=== PATIENT | female | born 1990 | race Caucasian/White ===

== ENCOUNTER → 2020-07-29 | Outpatient (CLI) | payer SELFPAY | LOC: M LABSMTC 09:57 | PROVIDERS: ATTEND Pediatrics | DX: Z20.828 Contact with and (suspected) exposure to other viral communicable diseases (principal) ==

== ENCOUNTER → 2021-06-21 | Outpatient (REF) | payer OTHER | LOC: M LAB REF 09:55 | PROVIDERS: ATTEND Physician Assistant | DX: J00 Acute nasopharyngitis [common cold] (principal) ==

== ENCOUNTER 2021-07-11 09:28 | Day surgery (SDC) | payer OTHER ==
[~2021-07-11] VITALS: Ht 157.5 cm; Wt 86.6 kg
[~2021-07-11 09:28] MED LIST: LIDOCAINE 1% MDV 20ML VIAL SQ PRN; LR 1,000 ML IV ONE; ceFAZolin SOD 2 GM in IV 1 EA IV ONE
--- OUTSIDE RECORDS SUMMARY | 2021-07-11 09:36 | CCD | Continuity of Care Document ---
Author Author Ashley MILLER Organization Unknown Address [address] [place] [address] Phone [phone] Care Team Providers Care Aoc Airspace Control Officer Name Role Phone Solomon Yusuf MD AUTM Unavailable [facility] AUTM [phone] Problems Description No Information Available Social History Type Date Description Comments Sex Unknown ETOH Use Denies alcohol use Tobacco Use Start: Unknown The patient has never vaped Tobacco Use Start: Unknown Patient has never smoked Smoking Status Reviewed: 06/21/21 Patient has never smoked Allergies and adverse reactions Description No Known Drug Allergies Medications Description No Active Medications Immunizations Description No Information Available Vital Signs Date Vital Result Comment 06/21/2021 4:09pm BP Systolic 123 mmHg BP Diastolic 84 mmHg Heart Rate 108 /min Respiratory Rate 16 /min O2 % BldC Oximetry 99 % Body Temperature 98.3 F Weight 185.00 lb Height 62 inches 5'2" BMI (Body Mass Index) 33.8 kg/m2 Pain Level 7 Results Description No Information Available Procedures Date Code Description Status 06/21/2021 65027 Office/Outpatient New Low [facility] 30 -44 Minutes Completed Medical Devices Description No Information Available Encounters Type Date Location Provider Dx Diagnosis Office Visit 06/21/2021 12:15p Main Office DONALD Keller J00 Acute nasopharyngitis [common cold] Z20.828 Contact w and exposure to ot h viral communicable diseases Assessments Date Code Description Provider 06/21/2021 J00 Acute nasopharyngitis [common co ld] DONALD Keller 06/21/2021 Z20.828 Contact with and (bhatt spected) exposure to other viral communicable diseases DONALD Keller Plan of Treatment No Information Available Functional Status Description No Information Available Mental Status Description No Information Available Referrals Refer to Reason for Referral Status Appt Date [facility] [address] [address]
--- OUTSIDE RECORDS SUMMARY | 2021-07-11 09:36 | CCD | Continuity of Care Document ---
Author Author Ashley MILLER Organization Unknown Address [address] [place] [address] Phone [phone] Care Team Providers Care Photographers' Model Name Role Phone Solomon Yusuf MD AUTM Unavailable [facility] AUTM [phone] Problems Description No Information Available Social [...] Available Procedures Date Code Description Status 06/21/2021 88850 Office/Outpatient New Low [facility] 30 -44 Minutes Completed Medical Devices [...] to Reason for Referral Status Appt Date [facility] [address] [address]
--- OUTSIDE RECORDS SUMMARY | 2021-07-11 09:36 | CCD | Continuity of Care Document ---
Author Author Ashley MILLER Organization Unknown Address [address] [place] [address] Phone [phone] Care Team Providers Care Food Safety Auditor Name Role Phone Solomon Yusuf MD AUTM Unavailable [facility] AUTM [phone] Problems Description No Information Available Social [...] Index) 33.8 kg/m2 Pain Level 7 Results Test Acquired Date Facility Test Result H/L Range Note Group A Stretp Culture 06/21/[address] [address] [phone] Group A Strep Culture FULL REPORT IN L <SEE NOTE> Nor mal 1 1 FULL REPORT IN LAB NOTES (eC W and [facility]). NEGATIVE FOR STREP PYOGENES (GROUP A) Procedures Date Code Description Status 06/21/2021 43962 Office/Outpatient New Low [facility] 30 -44 Minutes Completed Medical Devices Description [...] to Reason for Referral Status Appt Date [facility] [address] [address]
--- OUTSIDE RECORDS SUMMARY | 2021-07-11 09:36 | CCD | Continuity of Care Document ---
Author Author Ashley RICH DPM Organization Unknown Address [address] [place] [address], [facility] [address] [place] [address] Phone [phone] Care Team Providers Care Court Magistrate Name Role Phone Lindsay [facility] AUTM Unavailable Problems Active Problems Provider Date Swelling of first metatarsal joint of hallux of right foot Salvador Rich DPM Onset: 06/18/2021 Swelling of first metatarsal joint of hallux of left foot An yasemin Rich DPM Onset: 06/18/2021 Tailor's bunion Pablito Rich DPM Onset: 06/18/2021 Tailor's bunion Pablito Rich DPM Onset: 06/18/2021 Social History Type Date Description Comments Sex Unknown ETOH Use Denies alcohol use Tobacco Use Start: Unknown End: Unknown Patient is a former smoker smoked for 4 yers 2-3 cigs daily quit 2019 Allergies and adverse reactions Description No Known Drug Allergies Medications Description No Active Medications Immunizations Description No Information Available Vital Signs Date Vital Result Comment 06/18/2021 9:06am Height 62 inches 5'2" Weight 185.00 lb BP Systolic 138 mmHg BP Diastolic 84 mmHg Heart Rate 80 /min BMI (Body Mass Index) 33.8 kg/m2 Results Description No Information Available Procedures Date Code Description Status 06/18/2021 21148 Office/Outpatient New Low [facility] 30 -44 Minutes Completed 06/18/2021 58928 X-Ray Foot Complete Completed 06/18/2021 38332 X-Ray Foot Complete Completed Medical Devices Description No Information Available Encounters Type Date Location Provider Dx Diagnosis Office Visit 06/18/2021 9:15a [place] [facility] Pablito Rich DPM M21.611 Bunion of right foot M21.612 Bunion of left foot M21.621 Bunionette of right foot M21.622 Bunionette of left foot Assessments Date Code Description Provider 06/18/2021 M21.611 Bunion of right foot Pablito bee, DPM 06/18/2021 M21.612 Bunion of left foot Pablito mathur, DPM 06/18/2021 M21.621 Bunionette of right foot Pablito Rich, LUCIANO 06/18/2021 M21.622 Bunionette of left foot Pablito Rich DPM Plan of Treatment No Information Available Functional Status Description No Information Available Mental Status Description No Information Available Referrals Refer to Dr Reason for Referral Status Appt Date Pablito Rich DPM RT FOOT PAIN RT FOOT GROWTH Created [address] [address] [phone]
--- OUTSIDE RECORDS SUMMARY | 2021-07-11 09:36 | CCD | Continuity of Care Document ---
Author Author Ashley MILLER Organization Unknown Address [address] [place] [address] Phone [phone] Care Team Providers Care Warp Dresser Name Role Phone Solomon Yusuf MD AUTM Unavailable [facility] AUTM Problems Description No Information Available Social History [...] Available Procedures Date Code Description Status 06/21/2021 28915 Office/Outpatient New Low [facility] 30 -44 Minutes Completed Medical Devices [...] to Reason for Referral Status Appt Date [facility] [address] [address]
--- OUTSIDE RECORDS SUMMARY | 2021-07-11 09:36 | CCD ---
Author Author [facility] Organization [facility] Address Unknown Phone Unavailable Care Team Providers Care Agronomy Teacher Name Role Phone Elidia RICH DPM Unavailable Unavailable Elidia RICH DPM Unavailable Unavailable Elidia RICH DPM Unavailable Unavailable Elidia RICH DPM Unavailable Unavailable Elidia RICH DPM Unavailable Unavailable Elidia RICH DPM Unavailable Unavailable Elidia RICH DPM Unavailable Unavailable Elidia RICH DPM Unavailable Unavailable Elidia RICH DPM Unavailable Unavailable Elidia RICH DPM Unavailable Unavailable Elidia RICH DPM Unavailable Unavailable Elidia RICH DPM Unavailable Unavailable Elidia RICH DPM Unavailable Unavailable Elidia RICH DPM Unavailable Unavailable Elidia RICH DPM Unavailable Unavailable Elidia RICH DPM Unavailable Unavailable Elidia RICH DPM Unavailable Unavailable Elidia RICH DPM Unavailable Unavailable Elidia RICH DPM Unavailable Unavailable Elidia RICH DPM Unavailable Unavailable Elidia RICH DPM Unavailable Unavailable Elidia RICH DPM Unavailable Unavailable Elidia RICH DPM Unavailable Unavailable Elidia RICH DPM Unavailable Unavailable Elidia RICH DPM Unavailable Unavailable Elidia RICH DPM Unavailable Unavailable Elidia RICH DPM Unavailable Unavailable Elidia RICH DPM Unavailable Unavailable Elidia RICH DPM Unavailable Unavailable Elidia RICH DPM Unavailable Unavailable MAJAK, R ZAHRA DPM Unavailable Unavailable MAJAK, R ZAHRA DPM Unavailable Unavailable MAJAK, R ZAHRA DPM Unavailable Unavailable RING, K LURDES PA Unavailable Unavailable RING, K LURDES PA Unavailable Unavailable RING, K LURDES PA Unavailable Unavailable RING, K LURDES PA Unavailable Unavailable RING, K LURDES PA Unavailable Unavailable RING, K LURDES PA Unavailable Unavailable RING, K LURDES PA Unavailable Unavailable RING, K LURDES PA Unavailable Unavailable RING, K LURDES PA Unavailable Unavailable RING, K LURDES PA Unavailable Unavailable RING, K LURDES PA Unavailable Unavailable RING, K LURDES PA Unavailable Unavailable RING, K LURDES PA Unavailable Unavailable RING, K LURDES PA Unavailable Unavailable RING, K LURDES PA Unavailable Unavailable RING, K LURDES PA Unavailable Unavailable RING, K LURDES PA Unavailable Unavailable RING, K LURDES PA Unavailable Unavailable RING, K LURDES PA Unavailable Unavailable RING, K LURDES PA Unavailable Unavailable RING, K LURDES PA Unavailable Unavailable RING, K LURDES PA Unavailable Unavailable RING, K LURDES PA Unavailable Unavailable Re-disclosure Warning The records that you are about to access may contain information from federally-assisted alcohol or drug abuse programs. If such information is present, then the following federally mandated warning applies: This information has been disclosed to you from records protected by federal confidentiality rules (42 CFR part 2). The federal rules prohibit you from making any further disclosure of this information unless further disclosure is expressly permitted by the written consent of the person to whom it pertains or as otherwise permitted by 42 CFR part 2. A general authorization for the release of medical or other information is NOT sufficient for this purpose. The Federal rules restrict any use of the information to criminally investigate or prosecute any alcohol or drug abuse patient.The records that you are about to access may contain highly sensitive health information, the redisclosure of which is protected by Article 27-F of the [place] State Public Health law. If you continue you may have access to information: Regarding HIV / AIDS; Provided by facilities licensed or operated by the [facility] Office of Mental Health; or Provided by the [facility] Office for People With Developmental Disabilities. If such information is present, then the following [facility] mandated warning applies: This information has been disclosed to you from confidential records which are protected by state law. State law prohibits you from making any further disclosure of this information without the specific written consent of the person to whom it pertains, or as otherwise permitted by law. Any unauthorized further disclosure in violation of state law may result in a fine or halfway sentence or both. A general authorization for the release of medical or other information is NOT sufficient authorization for further disc losure. Encounters Encounter Providers Location Date Indications Data Source(s ) Outpatient Attender: LURDES [facility] 06/21/2021 11:15:00 AM EST [facility] ([facility], [facility]) Outpatient Attender: ZAHRA RICH [facility] Office 06/04 08:15:00 AM EST [facility] ([facility] Medications No Information Insurance Providers Payer name Policy type / Coverage type Policy ID Covered green party ID Covered green party's relationship to hayward Policy [place] Plan Information [facility] [id number] DO NOT USE [id number] FA2 [id number] SELF PAY ONLY [id number] [facility] [id number] FA2 [id number] Problems, Conditions, and Diagnoses Code Display Name Description Problem Type Effective Dates Data Source(s) M21.622 Tailor's bunion Tailor's bunion Problem 06/18/2021 12:0 0:00 AM EST [facility] ([facility] M21.621 Tailor's bunion Tailor's bunion Problem 06/18/2021 12:0 0:00 AM EST [facility] ([facility] M21.612 Swelling of first metatarsal joint of arenas llux of left foot Swelling of first metatarsal joint of hallux of left foot Problem 06/18/20 12:00:00 AM EST [facility] ([facility] M21.611 Swelling of first metatarsal joint of arenas llux of right foot Swelling of first metatarsal joint of hallux of right foot Problem 021 12:00:00 AM EST [facility] ([facility] Surgeries/Procedures Procedure Description Date Indications Data Source(s) OFFICE OUTPATIENT NEW 30 MINUTES 06/21/2021 12:00:00 A M EST [facility] ([facility]) RADEX FOOT COMPLETE MINIMUM 3 VIEWS 06/18/2021 12:00:0 0 AM EST [facility] ([facility] RADEX FOOT COMPLETE MINIMUM 3 VIEWS 06/18/2021 12:00:0 0 AM EST [facility] ([facility] OFFICE OUTPATIENT NEW 30 MINUTES 06/18/2021 12:00:00 A M EST [facility] ([facility] Results ID Date Data Source [id number] 07/06/2021 08:36:00 AM EST [facility] Name Value Range Interpretation Code Description Data Maggy rce(s) Supporting Document(s) SARS coronavirus 2 RNA Not Detected [facility] This lab was ordered by [facility] and reported by [facility]. ID Date Data Source [id number] 06/21/2021 04:45:00 PM EST [facility] ([facility]) Name Value Range Interpretation Code Description Data Maggy rce(s) Supporting Document(s) Group A Strep Culture Laboratory test result [facility] ([facility]) FULL REPORT IN LAB NOTES ([facility] and [facility] ). NEGATIVE FOR STREP PYOGENES (GROUP A) ID Date Data Source [id number] 06/21/2021 12:00:00 AM EST [facility] Name Value Range Interpretation Code Description Data Maggy rce(s) Supporting Document(s) SARS-CoV2 Rapid Antigen Negative [facility] This lab was ordered by [facility] and reported by [facility]. ID Date Data Source [id number] 07/29/2020 12:00:00 AM EST [facility] Name Value Range Interpretation Code Description Data Maggy rce(s) Supporting Document(s) SARS-CoV-2 (COVID-19) RNA [Presence] in Respiratory specimen by PATRICE with probe detection [facility] This lab was ordered by [facility] and reported by [facility]. Procedure Social History Code Duration Value Status Description Data Source(s ) Smoking 06/21/2021 12:00:00 AM EST Patient has never smoked co mpleted Patient has never smoked [facility] ([facility]) Vital Signs ID Date Data Source UNK Name Value Range Interpretation Code Description Data Source(s) Systolic blood pressure 123 mm[Hg] 123 mm[Hg] [facility] ([facility]) Diastolic blood pressure 84 mm[Hg] 84 mm[Hg] [facility] ([facility]) Heart rate 108 /min 108 /min [facility] ([facility]) Respiratory rate 16 /min 16 /min [facility] ( [facility]) Oxygen saturation in Arterial blood by Pulse oximetry 99 % 99 % [facility] ([facility]) Body temperature 98.3 [degF] 98.3 [degF] [facility] ([facility]) Body weight 185.00 [lb_av] 185.00 [lb_av] [facility] T ([facility]) Body height 62 [in_i] 62 [in_i] [facility] ([facility]) 5'2" Body mass index (BMI) [Ratio] 33.8 kg/m2 33.8 k g/m2 [facility] ([facility]) Body height 62 [in_i] 62 [in_i] [facility] ([facility] 5'2" Body weight 185.00 [lb_av] 185.00 [lb_av] [facility] T ([facility] Systolic blood pressure 138 mm[Hg] 138 mm[Hg] M [facility] ([facility] Diastolic blood pressure 84 mm[Hg] 84 mm[Hg] [facility] ([facility] Heart rate 80 /min 80 /min [facility] ([facility] Body mass index (BMI) [Ratio] 33.8 kg/m2 33.8 k g/m2 [facility] ([facility]
--- OUTSIDE RECORDS SUMMARY | 2021-07-11 09:36 | CCD | Continuity of Care Document ---
Author Author [facility] Organization Unknown Address [address] [place] [address] [place] [address] Phone [phone] Care Team Providers Care Asbestos Abatement Technician Name Role Phone Solomon Yusuf MD AUTM Unavailable [facility] AUTM [phone] Problems Description No Information Available Social [...] Available Procedures Date Code Description Status 06/21/2021 07270 Office/Outpatient New Low [facility] 30 -44 Minutes Completed Medical Devices [...] to Reason for Referral Status Appt Date [facility] [address] [address]
--- OUTSIDE RECORDS SUMMARY | 2021-07-11 09:36 | CCD | Continuity of Care Document ---
Author Author Ashley MILLER Organization Unknown Address [address] [place] [address] Phone [phone] Care Team Providers Care Customer Success Manager Name Role Phone Solomon Yusuf MD AUTM Unavailable [facility] AUTM Problems Description No Information Available Social [...] Available Procedures Date Code Description Status 06/21/2021 39865 Office/Outpatient New Low [facility] 30 -44 Minutes Completed Medical Devices [...] to Reason for Referral Status Appt Date [facility] [place] [address]
[2021-07-11] MEDS ORDERED: fentaNYL 100 MCG/2 ML INJECTION (J3010) As Ordered ONE (09:52)
[2021-07-11] MEDS ORDERED: MIDAZOLAM INJ 2MG/2ML VIAL (J2250 PER 1MG) As Ordered ONE (09:52)
[2021-07-11] MEDS ORDERED: propofoL 200 MG/20 ML VIAL As Ordered ONE ×3 (09:52→12:03)
[2021-07-11] MEDS ORDERED: LIDOCAINE 2% 100MG/5ML SDV (FOR ANES.) As Ordered ONE (09:52)
[2021-07-11] MEDS ORDERED: dexameTHASONE 4 MG/ML 1ML VIAL (J1100 PER 1MG) As Ordered ONE (11:15)
[2021-07-11] MEDS ORDERED: ACETAMINOPHEN 1000MG 100ML IV BTL (OFIRMEV) (J0131 PER 10MG) As Ordered ONE (11:15)
[2021-07-11] MEDS ORDERED: LIDOCAINE 1% MDV 20ML VIAL As Ordered ONE (11:15)
[2021-07-11] MEDS ORDERED: BUPIVACAINE HCL 0.5% 10ML VIAL As Ordered ONE (11:15)
[2021-07-11] MEDS ORDERED: ONDANSETRON 4MG/2ML VIAL As Ordered ONE (11:48)
[2021-07-11] MEDS ORDERED: KETOROLAC 60MG 2ML VIAL As Ordered ONE (11:48)
[2021-07-11] MEDS ORDERED: HYDR-3713 PO (12:46)
--- NOTE | 2021-07-11 15:31 | RO ---
OPERATIVE NOTE DATE OF OPERATION: 07/11/2021 PREOPERATIVE DIAGNOSIS: Right foot bunion and tailor's bunion. POSTOPERATIVE DIAGNOSIS: Right foot bunion and tailor's bunion. PROCEDURE: Right foot bunionectomy and 1st metatarsal osteotomy and tailor's bunionectomy with 5th metatarsal osteotomy. SURGEON: Dr. Pablito Rojas VOUCHER EXAMINER: None. ANESTHESIA: Monitored anesthesia care. Preoperative injection of 20 mL of a 1:1 mixture of 1% lidocaine plain, 0.5% Marcaine plane. ESTIMATED BLOOD LOSS: Minimal. MATERIALS: Arthrex 2.5 and 3.5 headless compression screws, 3-0 and 4-0 Vicryl, 4-0 nylon. INJECTABLES: Decadron 1 mL, 4 mg/mL COMPLICATIONS: None. CONDITION: Stable. Ashley Tinoco is a 30-year-old female who presented to [facility] with painful bunion to her right foot. She presents today for a surgical correction. The patient's side and site were identified and marked in the preoperative area. Consent was reviewed and obtained. All risks, complications, and alternatives to the procedure were explained to the patient in detail, and her questions were answered. DESCRIPTION OF PROCEDURE: Patient was brought to the operating room and placed on the operating table in the supine position. Monitored anesthesia care was delivered by the anesthesia team. A preoperative injection of 20 mL of a 1:1 mixture of 1% lidocaine plain, 0.5% Marcaine plain were injected in the right foot. The right foot was prepped and draped in the normal sterile fashion. A tourniquet was applied to her ankle and inflated to 250 mmHg. A dorsal incision was first made at the 1st metatarsal and carried through with a #15 blade. Dissection was carried to the first metatarsophalangeal joint capsule. T capsulotomy was performed, exposing the metatarsal head. Following this, a lateral release was performed, releasing the adductor tendon, lateral capsule, and sesamoidal ligament. McGlamry elevator was used to release the plantar structures. The medial eminence of the metatarsal head was resected with a sagittal saw, and an osteotomy was performed in the metatarsal head, transposing it laterally. This was fixated with an Arthex 3.5 headless compression screw. Remaining bone ledge was resected with a sagittal saw and smoothed with a rasp. Capsular repair was performed with 3-0 Vicryl, subcutaneous closed with 4-0 Vicryl, and skin closed with 4-0 nylon. Attention was then paid to the 5th metatarsal. A dorsal incision was drawn and carried through with a #15 blade. A linear capsulotomy was made over the 5th metatarsal head. McGlamry elevator was used to release the plantar structures. The lateral eminence of the 5th metatarsal head was resected with the sagittal saw. An osteotomy was performed, transposing the head of the metatarsal medially. This was fixated with a 2.5 headless compression screw. Remaining bone ledge was resected with the sagittal saw and smoothed with a rasp. Site was irrigated with normal saline. Capsular repair was performed with 3-0 Vicryl, subcutaneous closure with 4-0 Vicryl, skin closure of 4-0 nylon. Decadron 1 mL was injected. Sterile dressing was applied. Tourniquet was desufflated. Patient was brought to postanesthesia care unit (PACU) with vital signs stable, neurovascular status intact. She will be partial weightbearing and followup in our office in 2 days.
== END 2021-07-11 13:47 | disposition home or self-care (01) ==
LOC: M SDC 09:28
PROVIDERS: ATTEND Podiatrist Foot & Ankle Surgery
DX: M21.611 Bunion of right foot (principal); I10 Essential (primary) hypertension; G43.909 Migraine, unspecified, not intractable, without status migrainosus; Z87.891 Personal history of nicotine dependence
CPT/HCPCS: 28110; 28296; 81025; 88300; 97116; 97530; C1713; J0131; J0690; J1100; J1885; J2250; J2405; J3010

== ENCOUNTER → 2022-03-04 | Outpatient (CLI) | payer OTHER ==
[~2022-03-04] MED LIST changes: +HYDR-3713 PO; -LIDOCAINE 1% MDV 20ML VIAL SQ PRN; -LR 1,000 ML IV ONE; -ceFAZolin SOD 2 GM in IV 1 EA IV ONE
== END ==
LOC: M RAD 14:30
DX: M54.9 Dorsalgia, unspecified (principal); M53.85 Other specified dorsopathies, thoracolumbar region

== ENCOUNTER → 2022-04-04 | Outpatient (CLI) | payer OTHER | LOC: M RAD 09:51 | PROVIDERS: ATTEND Nurse Practitioner Family | DX: G56.02 Carpal tunnel syndrome, left upper limb (principal) ==

== ENCOUNTER → 2022-04-24 | Outpatient (CLI) | payer OTHER | LOC: M RAD 14:33 | PROVIDERS: ATTEND Nurse Practitioner Family | DX: G56.01 Carpal tunnel syndrome, right upper limb (principal) ==

== ENCOUNTER → 2022-08-16 | Outpatient (REF) | payer OTHER ==
[~2022-08-16] MED LIST changes: +ACET-683 PO; +IBUP-1022 PO; +NITR100C2
[2022-08-16 14:47] LABS: APPEARANCE, URINE MANUAL CLEAR (CLEAR); COLOR, URINE MANUAL YELLOW (YELLOW); SPECIFIC GRAVITY,URINE MANUAL 1.005 (1.002-1.035)
[2022-08-16 14:48] LABS: BILIRUBIN, URINE MANUAL NEGATIVE (NEGATIVE); GLUCOSE, URINE (UA) MANUAL NEGATIVE (NEGATIVE); KETONE, URINE MANUAL NEGATIVE (NEGATIVE); PROTEIN, URINE MANUAL NEGATIVE (NEGATIVE); UROBILINOGEN, URINE MANUAL NORMAL (NORMAL)
[2022-08-16 14:49] LABS: BLOOD URINE MANUAL NEGATIVE (NEGATIVE); LEUKOCYTE ESTERASE, URINE MAN NEGATIVE (NEGATIVE); NITRITE, URINE MANUAL POSITIVE (NEGATIVE)
[2022-08-16 15:13] LABS: RBC, URINE 0-1 /hpf (0-3); SQUAMOUS EPITHELIAL CELL URINE SMALL AMOUNT /hpf (SMALL AMT); WBC, URINE 0-1 /hpf (0-3)
[2022-08-16 15:14] LABS: BACTERIA, URINE SMALL AMOUNT; HYALINE CAST, URINE NONE SEEN /lpf (0-1)
== END ==
LOC: M LAB REF 13:14
PROVIDERS: ATTEND Physician Assistant Medical
DX: N39.0 Urinary tract infection, site not specified (principal)

== ENCOUNTER → 2022-08-18 | Outpatient (CLI) | payer OTHER ==
[~2022-08-18] MED LIST changes: -NITR100C2
== END ==
LOC: M LABSMTC 10:35
PROVIDERS: ATTEND Anesthesiology
DX: Z01.812 Encounter for preprocedural laboratory examination (principal); Z11.52 Encounter for screening for COVID-19

== ENCOUNTER 2022-08-21 07:01 | Day surgery (SDC) | payer OTHER ==
[~2022-08-21] VITALS: Ht 154.9 cm; Wt 89.4 kg
[~2022-08-21 07:01] MED LIST changes: +ceFAZolin SOD 2 GM in IV 1 EA IV ONE
[2022-08-21] MEDS ORDERED: LR 1,000 ML IV SCH (07:10)
[2022-08-21] MEDS ORDERED: NITR100C2 (07:23)
[2022-08-21] MEDS ORDERED: MIDAZOLAM INJ 2MG/2ML VIAL As Ordered ONE (07:50)
[2022-08-21] MEDS ORDERED: propofoL 200 MG/20 ML VIAL As Ordered ONE (07:50)
[2022-08-21] MEDS ORDERED: fentaNYL 100 MCG/2 ML INJECTION As Ordered ONE (07:50)
[2022-08-21] MEDS ORDERED: KETOROLAC 60MG 2ML VIAL As Ordered ONE (07:50)
[2022-08-21] MEDS ORDERED: LIDOCAINE 2% 100MG/5ML SDV (FOR ANES.) As Ordered ONE (07:50)
[2022-08-21] MEDS ORDERED: LIDOCAINE 1% MDV 20ML VIAL As Ordered ONE (08:24)
[2022-08-21] MEDS ORDERED: BUPIVACAINE HCL 0.25% 10ML VIAL As Ordered ONE (08:24)
[2022-08-21 09:44] VITALS: BP 131/92
== END 2022-08-21 09:54 | disposition home or self-care (01) ==
LOC: M SDC 07:01
PROVIDERS: ATTEND Podiatrist Foot & Ankle Surgery
DX: T85.848A Pain due to other internal prosthetic devices, implants and grafts, initial encounter (principal); M25.571 Pain in right ankle and joints of right foot; Z87.891 Personal history of nicotine dependence; I10 Essential (primary) hypertension; G43.909 Migraine, unspecified, not intractable, without status migrainosus; F41.9 Anxiety disorder, unspecified; F32.A Depression, unspecified; Z79.899 Other long term (current) drug therapy
CPT/HCPCS: 20680; 28122; 81025; J1100

== ENCOUNTER → 2022-09-04 | Outpatient (CLI) | payer OTHER ==
[~2022-09-04] MED LIST changes: +NITR100C2; -ceFAZolin SOD 2 GM in IV 1 EA IV ONE
== END ==
LOC: M LABSMTC 11:06
PROVIDERS: ATTEND Anesthesiology
DX: Z01.818 Encounter for other preprocedural examination (principal)

== ENCOUNTER 2022-09-09 06:09 | Day surgery (SDC) | payer OTHER ==
[~2022-09-09] VITALS: Ht 154.9 cm; Wt 89.3 kg
[~2022-09-09 06:09] MED LIST changes: +ceFAZolin SOD 2 GM in IV 1 EA IV ONE; +oxyCODONE 5MG TAB PO ONE
[2022-09-09] MEDS ORDERED: BUPIVACAINE/EPIN 0.5% 30ML VIAL As Ordered ONE (07:10)
[2022-09-09] MEDS ORDERED: ONDANSETRON 4MG 2ML VIAL As Ordered ONE (07:20)
[2022-09-09] MEDS ORDERED: propofoL 200 MG/20 ML VIAL As Ordered ONE (07:20)
[2022-09-09] MEDS ORDERED: LIDOCAINE 2% 100MG/5ML SDV (FOR ANES.) As Ordered ONE (07:20)
[2022-09-09] MEDS ORDERED: MIDAZOLAM INJ 2MG/2ML VIAL As Ordered ONE (07:20)
[2022-09-09] MEDS ORDERED: fentaNYL 100 MCG/2 ML INJECTION As Ordered ONE (07:20)
[2022-09-09] MEDS ORDERED: KETOROLAC 60MG 2ML VIAL As Ordered ONE (07:20)
[2022-09-09] MEDS ORDERED: LR 1,000 ML IV SCH (08:10)
[2022-09-09] MEDS ORDERED: HYDROMORPHONE HCL 0.5 MG/ 0.5 ML SYRINGE IV PRN (08:10)
[2022-09-09] MEDS ORDERED: ONDANSETRON 4MG 2ML VIAL IV PRN (08:10)
[2022-09-09] MEDS ORDERED: fentaNYL 100 MCG/2 ML INJECTION IV PRN (08:10)
[2022-09-09] MEDS ORDERED: OXYC1TAB23 PO (08:21)
[2022-09-09 09:30] VITALS: BP 136/70
== END 2022-09-09 09:35 | disposition home or self-care (01) ==
LOC: M SDC 06:09
PROVIDERS: ATTEND Orthopaedic Surgery
DX: G56.02 Carpal tunnel syndrome, left upper limb (principal); I10 Essential (primary) hypertension; G43.909 Migraine, unspecified, not intractable, without status migrainosus; F41.9 Anxiety disorder, unspecified; F32.A Depression, unspecified; K21.9 Gastro-esophageal reflux disease without esophagitis; Z79.899 Other long term (current) drug therapy
CPT/HCPCS: 29848; J0690; J1100; J2250; J2405; J3010

== ENCOUNTER → 2023-07-08 | Outpatient (CLI) | payer OTHER ==
[~2023-07-08] MED LIST changes: +ACET1TAB55 PO; +ATEN50TA2 PO; +OXYC1TAB23 PO; +SERT50TA29 PO; -ceFAZolin SOD 2 GM in IV 1 EA IV ONE; -oxyCODONE 5MG TAB PO ONE
== END ==
LOC: M PLALAB 11:32
PROVIDERS: ATTEND Advanced Practice Midwife
DX: O10.012 Pre-existing essential hypertension complicating pregnancy, second trimester (principal); Z3A.00 Weeks of gestation of pregnancy not specified

== ENCOUNTER → 2023-07-21 | Outpatient (CLI) | payer OTHER | LOC: M WHC 10:28 | PROVIDERS: ATTEND Advanced Practice Midwife | DX: O10.012 Pre-existing essential hypertension complicating pregnancy, second trimester (principal); Z3A.19 19 weeks gestation of pregnancy; O32.1XX0 Maternal care for breech presentation, not applicable or unspecified ==

== ENCOUNTER 2023-07-30 00:31 | Outpatient (CLI) | payer OTHER ==
[~2023-07-30] VITALS: Ht 154.9 cm; Wt 88.8 kg
[2023-07-30 00:53] VITALS: BP 141/91
[2023-07-30 01:04] VITALS: BP 142/88
[2023-07-30] MEDS ORDERED: HOME MED LIST COMPLETE! XX SCH (01:50)
== END 2023-07-30 02:00 ==
LOC: M LDO 00:31
PROVIDERS: ATTEND Obstetrics & Gynecology
DX: O26.892 Other specified pregnancy related conditions, second trimester (principal); R25.2 Cramp and spasm; Z3A.20 20 weeks gestation of pregnancy
CPT/HCPCS: 59025; 81002; G0463

== ENCOUNTER → 2023-08-18 | Outpatient (CLI) | payer OTHER | LOC: M WHC 11:17 | PROVIDERS: ATTEND Advanced Practice Midwife | DX: Z36.2 Encounter for other antenatal screening follow-up (principal); Z3A.23 23 weeks gestation of pregnancy; O32.2XX0 Maternal care for transverse and oblique lie, not applicable or unspecified ==

== ENCOUNTER → 2023-09-10 | Outpatient (CLI) | payer OTHER ==
[2023-09-10 14:58] LABS: HEMOGLOBIN 11.9 g/dl (12.0-15.5); MEAN CORPUSCULAR HEMOGLOBIN 30.8 pg (27.0-33.0); MEAN CORPUSCULAR HGB CONC 32.2 g/dl (32.0-36.5); MEAN CORPUSCULAR VOLUME 95.9 fl (80.0-96.0); PLATELET COUNT, AUTOMATED 238 10^3/uL (150-450); RED BLOOD COUNT 3.86 10^6/uL (4.00-5.40); WHITE BLOOD COUNT 10.5 10^3/uL (4.0-10.0)
== END ==
LOC: M PLALAB 10:04
PROVIDERS: ATTEND Advanced Practice Midwife
DX: Z34.02 Encounter for supervision of normal first pregnancy, second trimester (principal)

== ENCOUNTER → 2023-09-15 | Outpatient (CLI) | payer OTHER | LOC: M LAB 06:00 | PROVIDERS: ATTEND Advanced Practice Midwife | DX: O99.810 Abnormal glucose complicating pregnancy (principal); Z3A.00 Weeks of gestation of pregnancy not specified ==

== ENCOUNTER 2023-10-17 11:46 | Outpatient (CLI) | payer OTHER ==
[~2023-10-17] VITALS: Ht 154.9 cm; Wt 96.3 kg
[2023-10-17 12:06] VITALS: BP 148/102
[2023-10-17] MEDS ORDERED: PRENTAB9 PO (12:20)
[2023-10-17] MEDS ORDERED: VITA25TA3 PO (12:20)
[2023-10-17] MEDS ORDERED: ASPI81CH33 PO (12:20)
[2023-10-17 12:23] VITALS: BP 132/92
[2023-10-17] MEDS ORDERED: HOME MED LIST COMPLETE! XX SCH (12:25)
[2023-10-17 12:37] VITALS: BP 128/93
[2023-10-17 12:40] LABS: HEMOGLOBIN 12.1 g/dl (12.0-15.5); MEAN CORPUSCULAR HGB CONC 33.6 g/dl (32.0-36.5); MEAN CORPUSCULAR VOLUME 92.3 fl (80.0-96.0); PLATELET COUNT, AUTOMATED 181 10^3/uL (150-450); WHITE BLOOD COUNT 7.8 10^3/uL (4.0-10.0)
[2023-10-17 12:52] VITALS: BP 135/96
[2023-10-17 13:02] LABS: LDH LACTATE DEHYDROGENASE 166 U/L (120-246)
[2023-10-17 13:03] LABS: ALT/SGPT 41 U/L (7.0-40); AST/SGOT 36 U/L (<34); BILIRUBIN,TOTAL 0.2 MG/DL (0.3-1.2); CREATININE FOR GFR 0.55 MG/DL (0.55-1.30); GLOMERULAR FILTRATION RATE > 60.0 (>60)
[2023-10-17 13:03] LABS: CREATININE,RANDOM URINE < 13.0 MG/DL
[2023-10-17 13:04] LABS: TOTAL PROTEIN,RANDOM URINE < 6.0 MG/DL (0.0-14.0)
[2023-10-17 13:04] LABS: URIC ACID 6.6 MG/DL (3.1-7.8)
== END 2023-10-17 14:30 | disposition home or self-care (01) ==
LOC: M LDO 11:46
PROVIDERS: ATTEND Advanced Practice Midwife
DX: O10.013 Pre-existing essential hypertension complicating pregnancy, third trimester (principal); O99.343 Other mental disorders complicating pregnancy, third trimester; F41.8 Other specified anxiety disorders; Z3A.32 32 weeks gestation of pregnancy
CPT/HCPCS: 36415; 59025; 81001; 82247; 82570; 83615; 84156; 84450; 84460; 84550; 85027; G0463

== ENCOUNTER → 2023-11-06 | Outpatient (CLI) | payer OTHER ==
[~2023-11-06] MED LIST changes: +ASPI81CH33 PO; +PRENTAB9 PO; +VITA25TA3 PO
== END ==
LOC: M RAD 10:22
PROVIDERS: ATTEND Obstetrics & Gynecology
DX: O10.013 Pre-existing essential hypertension complicating pregnancy, third trimester (principal); Z3A.35 35 weeks gestation of pregnancy; O99.343 Other mental disorders complicating pregnancy, third trimester; F41.9 Anxiety disorder, unspecified
CPT/HCPCS: 59025; 76815; 76819; 76820; G0463

== ENCOUNTER → 2023-11-12 | Outpatient (CLI) | payer OTHER | LOC: M WHC 07:31 | PROVIDERS: ATTEND Advanced Practice Midwife | DX: O10.913 Unspecified pre-existing hypertension complicating pregnancy, third trimester (principal); Z3A.35 35 weeks gestation of pregnancy ==

== ENCOUNTER → 2023-11-13 | Outpatient (REF) | payer OTHER | LOC: M PLALAB 08:21 | PROVIDERS: ATTEND Advanced Practice Midwife | DX: O16.3 Unspecified maternal hypertension, third trimester (principal) ==

== ENCOUNTER → 2024-02-26 | Outpatient (REF) | payer OTHER ==
[~2024-02-26] MED LIST changes: +ACET325C5 PO; +COLA100C5 PO; +LABE100T40 PO; +LABE20TAB PO; +NIFE1TAB52 PO; +OXYC-517 PO
[2024-02-26 15:47] LABS: APPEARANCE, URINE HAZY (CLEAR); BACTERIA, URINE AUTO 1+ (NEGATIVE); BILIRUBIN, URINE AUTO NEGATIVE (NEGATIVE); BLOOD, URINE BLOOD NEGATIVE (NEGATIVE); COLOR, URINE YELLOW (YELLOW); GLUCOSE, URINE (UA) AUTO NEGATIVE (NEGATIVE); KETONE, URINE AUTO NEGATIVE (NEGATIVE); LEUKOCYTE ESTERASE, URINE AUTO NEGATIVE (NEGATIVE); NITRITE, URINE AUTO NEGATIVE (NEGATIVE); PROTEIN, URINE AUTO NEGATIVE (NEGATIVE); RBC, URINE AUTO 0 /HPF (0-3); SPECIFIC GRAVITY URINE AUTO 1.003 (1.002-1.035); SQUAMOUS EPITHELIAL CELL UR AU 2 /HPF (0-6); UROBILINOGEN, URINE AUTO 0.2 mg/dL (0.0-2.0); WBC, URINE AUTO 0 /HPF (0-3)
== END ==
LOC: M LAB REF 14:57
PROVIDERS: ATTEND Obstetrics & Gynecology
DX: R10.2 Pelvic and perineal pain (principal)

== ENCOUNTER → 2024-09-29 | Outpatient (CLI) | payer OTHER | LOC: M RAD 14:33 | PROVIDERS: ATTEND Family Medicine | DX: G56.02 Carpal tunnel syndrome, left upper limb (principal); M54.2 Cervicalgia ==